=== PATIENT | male | born 1960 | race Two or more races ===

== ENCOUNTER → 2020-07-19 | Day surgery (SDC) | payer OTHER ==
[~2020-07-19] MED LIST: IPRATRPIUM/ALBUTEROL 0.5/2.5MG 3 ML NEBU. NEB PRN; IV RINGERS SOLUTION,LACTATED 1,000 ML IV SCH; LIDOCAINE 2% PF 5 ML VIAL. ONE; MIDAZOLAM HCL PF 2 MG/2 ML VIAL. IV ONE; ONDANSETRON PF 4 MG/2 ML VIAL. IV PRN; PROPOFOL 10,000 MCG/ML (20ML) VIAL IV ONE
[2020-07-19 12:29] VITALS: BP 129/70
--- NOTE | 2020-07-23 14:11 | PATHOLOGY ---
[facility] Accession Number: [id number] . 01 Material submitted: . stomach - ANTRUM BIOPSY. Modifiers: ANTRUM . 01 Clinical history: . GERD/SCREENING EGD/COLON EGD+COLONOSCOPY . 02 Diagnosis: Gastric biopsies, antrum: - Chronic gastritis, mild. (JPM:danilo; 07/23/2020) MBR 07/23/2020 1115 Local . 02 Comment: Sections of the gastric biopsy reveal segments of gastric antral and antral/body transition mucosa showing congestion and mild chronic inflammation. A properly controlled immunoperoxidase stain for Helicobacter is negative for Helicobacter organisms. (JPM:danilo; 07/23/2020) . . Special stain performed: Immunoperoxidase stain for Helicobacter . 02 Electronically signed: . Raz Valente MD, Pathologist NPI- [id number] . 01 Gross description: . The specimen is received in formalin, labeled "Khurram, Jose Carlos, antrum BX" received as 2 fragments of soft jung tissue measuring up to 0.6 cm. Entirely submitted in A1.([facility]; 07/22/2020) LINDSEY/ILNDSEY 07/23/2020 1112 Local . 02 Pathologist provided ICD-10: K29.50 . 02 CPT . 422005, [id number] Specimen Comment: A courtesy copy of this report has been sent to [phone] Specimen Comment: Report sent to Performed at: 01 [facility] [address] [place] [address], [place] [id number] MD Rommel Morocho MD Phone: [phone] Performed at: 02 [facility] [address], [place] [id number] MD aRz Valente MD Phone: [phone]
== END | disposition home or self-care (01) ==
LOC: SURG 10:21
PROVIDERS: ATTEND Internal Medicine Gastroenterology
DX: Z12.11 Encounter for screening for malignant neoplasm of colon (principal); R12 Heartburn; K64.8 Other hemorrhoids; Z20.822 Contact with and (suspected) exposure to COVID-19; K29.50 Unspecified chronic gastritis without bleeding; K44.9 Diaphragmatic hernia without obstruction or gangrene; K52.9 Noninfective gastroenteritis and colitis, unspecified; K21.00 Gastro-esophageal reflux disease with esophagitis, without bleeding; K22.2 Esophageal obstruction
CPT/HCPCS: 43239; 45378; 87426; 88305; 88342; C9803; J2001; J2704; U0003